=== PATIENT | male | born 1960 | race Caucasian/White ===

== ENCOUNTER 2018-10-23 11:00 | Inpatient (IN) | payer OTHER ==
[2018-10-22 10:36] VITALS: BMI 21.9
[2018-12-06] MEDS ORDERED: LIDOCAINE 1%-EPI 1:100,000 30 ML MDV IJ ONE (08:03)
[2018-12-06] MEDS ORDERED: THROMBIN (BOVINE) 20,000 UNIT VIAL TP ONE ×2 (08:03→11:44)
[2018-12-06] MEDS ORDERED: GENTAMICIN SO4 80 MG/2 ML VIAL ONE (08:03)
[2018-12-06] MEDS ORDERED: BACITRACIN 15 GM TUBE TOPICAL OINTMENT ONE ×2 (08:25→08:28)
[2018-12-06] MEDS ORDERED: PROPOFOL 20 ML ONE (08:45)
[2018-12-06] MEDS ORDERED: SUCCINYLCHOLINE CHLORIDE 200 MG/10 ML SYRINGE ONE (08:45)
[2018-12-06] MEDS ORDERED: MIDAZOLAM HCL 2 MG/2 ML SINGLE DOSE VIAL ONE (08:46)
[2018-12-06] MEDS ORDERED: ceFAZolin SODIUM 1 GM VIAL ONE ×2 (08:46→17:19)
[2018-12-06] MEDS ORDERED: DEXAMETHASONE SOD PHOSPHATE 4 MG/1 ML VIAL ONE (08:46)
[2018-12-06] MEDS ORDERED: ONDANSETRON 4 MG/2 ML VIAL ONE (08:46)
[2018-12-06] MEDS ORDERED: VANCOMYCIN 1,000 MG VIAL (RESTRICTED TO ID ONLY) ONE (09:07)
--- NOTE | 2018-12-06 09:12 | HP ---
History & Physical Update - History History: No Change - Physical Physical: No Change - Assessment Assessment: No Change - Plan Plan: No Change (Full H&P in paper chart)
[2018-12-06] MEDS ORDERED: VANCOMYCIN 1,000 MG VIAL (RESTRICTED TO ID ONLY) IVPB ONE (09:25)
[2018-12-06] MEDS ORDERED: ceFAZolin SODIUM 1 GM VIAL IVPB ONE (09:25)
[2018-12-06] MEDS ORDERED: BUPIVACAINE LIPOSOME/PF (EXPAREL) 266 MG/20 ML VIAL ONE (09:49)
[2018-12-06] MEDS ORDERED: BUPIVACAINE HCL/PF 0.5% (5 MG/ML) 30 ML VIAL IJ ONE ×3 (09:49→12:30)
[2018-12-06] MEDS ORDERED: LIDOCAINE 1%/EPI 1:100000 (50 ML MULTI DOSE VIAL) INF ONE (09:53)
[2018-12-06] MEDS ORDERED: HYDROmorphone HCl 2 MG/ML VIAL ONE (10:07)
[2018-12-06] MEDS ORDERED: BUPIVACAINE LIPOSOME/PF (EXPAREL) 266 MG/20 ML VIAL IJ ONE ×2 (10:13→12:30)
[2018-12-06] MEDS ORDERED: GELATIN, ABSORBABLE 12-7MM EACH SPONGE TP ONE (10:13)
[2018-12-06] MEDS ORDERED: THROMBIN (BOVINE) 5,000 UNIT VIAL TP ONE ×2 (10:13)
[2018-12-06] MEDS ORDERED: EPHEDRINE SULFATE/0.9% NACL/PF 50 MG/10 ML SYRINGE NR ONE (10:53)
[2018-12-06] MEDS ORDERED: NEOSTIGMINE METHYLSULFATE 0.5 MG/1 ML - 10 ML MDV ONE (12:16)
[2018-12-06] MEDS ORDERED: GLYCOPYRROLATE 0.2 MG/1 ML VIAL ONE (12:17)
[2018-12-06] MEDS ORDERED: ONDANSETRON 4 MG/2 ML VIAL IVPUSH PRN ×2 (13:22→13:24)
[2018-12-06] MEDS ORDERED: diphenhydrAMINE HCL 25 MG CAPSULE (FP) PO PRN (13:22)
[2018-12-06] MEDS ORDERED: oxyCODONE HCL 5 MG TABLET PO PRN ×2 (13:22)
[2018-12-06] MEDS ORDERED: LACTATED RINGERS SOLUTION 1,000 ML IV SCH (13:30)
--- NOTE | 2018-12-06 13:31 | OP ---
Operative Note - Note: Operative Date: 12/06/18 Pre-Operative Diagnosis: Cervical spondylosis Operation: C3-T1 posterior fusion and laminectomies Post-Operative Diagnosis: Same as Pre-op Surgeon: Rigoberto Shepherd Tax Advisor: Palmer Stearns Anesthesia: General Estimated Blood Loss (mls): 1,200 Drains & Tubes with Location: Posterior neck Operative Report Dictated: Yes
[2018-12-06 13:50] LABS: HEMATOCRIT 28.3 % (35.4-49); HEMOGLOBIN 9.6 GM/dL (11.7-16.9); MCH 30.3 pg (25.7-33.7); MCHC 33.8 g/dl (32.0-35.9); MEAN CELL VOLUME 89.7 fl (80-96); MEAN PLT VOLUME 8.4 fl (7.5-11.1); PLATELET COUNT 156 K/MM3 (134-434); RBC 3.16 M/mm3 (4.00-5.60); RDW 12.8 % (11.9-15.9); WHITE BLOOD COUNT 7.1 K/mm3 (4.0-10.0)
--- NOTE | 2018-12-06 15:29 | PN ---
Progress Note, Physician Chief Complaint: patient seen and examined in PACU s/p C3-T1 decompression adn fusion - Current Medication List Current Medications: Active Medications Alprazolam (Xanax -) 0.5 mg PO Q6HPO PRN PRN Reason: ANXIETY Bupropion HCl (Wellbutrin Xl -) 300 mg PO DAILY [facility] Diphenhydramine HCl (Benadryl -) 25 mg PO Q6H PRN PRN Reason: FOR ITCHING Docusate Sodium (Colace -) 100 mg PO TID [facility] Ferrous Sulfate (Feosol -) 325 mg PO DAILY [facility] Folic Acid (Folic Acid -) 1 mg PO DAILY [facility] Heparin Sodium (Porcine) (Heparin -) 5,000 unit SQ TID [facility] Lactated Ringer's (Lactated Ringers Solution) 1,000 mls @ 75 mls/hr IV ASDIR [facility] Last Admin: 12/06/18 14:28 Dose: 0 mls Cefazolin Sodium 1 gm/ (Dextrose) 50 mls @ 100 mls/hr IVPB Q8H-IV [facility] Stop: 12/07/18 17:59 Lactated Ringer's (Lactated Ringers Solution) 1,000 ml in 1,000 mls @ 125 mls/ hr IV ASDIR [facility] Morphine Sulfate (Morphine Sulfate) 4 mg IVPUSH Q4H PRN PRN Reason: PAIN LEVEL 7 - 10 Non-Formulary Medication (Desloratadine/Pseudoephedrine [Clarinex-D 12 Hour Tablet]) 1 each PO DAILY [facility] Ondansetron HCl (Zofran Injection) 4 mg IVPUSH Q6H PRN PRN Reason: NAUSEA AND/OR VOMITING Ondansetron HCl (Zofran Injection) 4 mg IVPUSH Q6H PRN PRN Reason: NAUSEA Oxycodone HCl (Roxicodone -) 5 mg PO Q4H PRN PRN Reason: PAIN LEVEL 1-5 Oxycodone HCl (Roxicodone -) 10 mg PO Q4H PRN PRN Reason: PAIN LEVEL 6-10 Pantoprazole Sodium (Protonix -) 40 mg PO DAILY [facility] Ramipril (Altace -) 5 mg PO DAILY [facility] - Objective Vital Signs: Vital Signs Temperature 98.1 F 12/06/18 13:17 Pulse Rate 90 12/06/18 14:15 Respiratory Rate 16 12/06/18 14:15 Blood Pressure 129/80 12/06/18 14:15 O2 Sat by Pulse Oximetry (%) 100 12/06/18 14:15 Constitutional: Yes: Calm Neck: Yes: Other (neck collar with drain bloody drainage) Cardiovascular: Yes: Regular Rate and Rhythm, S1, S2 Respiratory: Yes: CTA Bilaterally Gastrointestinal: Yes: Normal Bowel Sounds, Soft Genitourinary: Yes: Woods Present Extremities: Yes: Other (scd) Neurological: Yes: Alert, Oriented, Other (able to move all extremites) Labs: CBC, BMP 12/06/18 13:25 Problem List - Problems (1) S/P spinal surgery Assessment/Plan: NABIL drain- COMPA on board repeat ct scan ordered iv abx pain contorl Code(s): Z98.890 - OTHER SPECIFIED POSTPROCEDURAL STATES (2) HTN (hypertension) Assessment/Plan: altace cmp ordered Code(s): I10 - ESSENTIAL (PRIMARY) HYPERTENSION
[2018-12-06] MEDS: DOCUSATE SODIUM 100 MG CAPSULE (FP) PO SCH ×2 (16:04→21:16)
[2018-12-06] MEDS: LACTATED RINGERS SOLUTION 1,000 ML/1,000 ML INFUS.BAG IV SCH ×2 (16:04→22:41)
[2018-12-06] MEDS: HEPARIN NA (PORCINE) 5,000 UNITS/ML 1ML VIAL SQ SCH ×2 (16:07→21:16)
[2018-12-06] MEDS ORDERED: DEXTROSE 5%-WATER - 50 ML IVPB ONE (17:19)
[2018-12-06] MEDS: CEFAZOLIN 1 GM in DEXTROSE 5%-WATER - 50 ML IVPB SCH (17:24)
[2018-12-06] MEDS ORDERED: PT OWN MED DRAWER 7, Y5N ONE (17:56)
[2018-12-06] MEDS: morphine SULFATE 4 MG/ML VIAL IVPUSH PRN (20:50)
[2018-12-06] MEDS: ALPRAZolam 0.25 MG TABLET PO PRN (21:16)
[2018-12-07] MEDS: oxyCODONE HCL 5 MG TABLET PO PRN ×4 (00:25→19:42)
[2018-12-07] MEDS ORDERED: DEXTROSE 5%-WATER - 50 ML IVPB ONE ×2 (01:34→09:47)
[2018-12-07] MEDS ORDERED: ceFAZolin SODIUM 1 GM VIAL ONE ×2 (01:34→09:47)
[2018-12-07] MEDS: CEFAZOLIN 1 GM in DEXTROSE 5%-WATER - 50 ML IVPB SCH ×2 (01:41→09:51)
[2018-12-07] MEDS: HEPARIN NA (PORCINE) 5,000 UNITS/ML 1ML VIAL SQ SCH ×3 (05:32→21:21)
[2018-12-07] MEDS: DOCUSATE SODIUM 100 MG CAPSULE (FP) PO SCH ×3 (05:32→21:21)
[2018-12-07] MEDS: morphine SULFATE 4 MG/ML VIAL IVPUSH PRN (06:04)
[2018-12-07 08:22] LABS: HEMATOCRIT 27.7 % (35.4-49); HEMOGLOBIN 9.6 GM/dL (11.7-16.9); MCH 31.3 pg (25.7-33.7); MCHC 34.8 g/dl (32.0-35.9); PLATELET COUNT 171 K/MM3 (134-434); RBC 3.08 M/mm3 (4.00-5.60); RDW 12.8 % (11.9-15.9); WHITE BLOOD COUNT 10.6 K/mm3 (4.0-10.0)
[2018-12-07 08:59] LABS: IRON SERUM 42 ug/dL (50-175); TOTAL IRON BINDING CAPACITY 230 ug/dL (250-450)
--- NOTE | 2018-12-07 08:59 | PN ---
Progress Note, Physician Chief Complaint: POD1 s/p C3-T1 ACDF - Current Medication List Current Medications: Active Medications Alprazolam (Xanax -) 0.5 mg PO Q6HPO PRN PRN Reason: ANXIETY Last Admin: 12/06/18 21:16 Dose: 0.5 mg Bupropion HCl (Wellbutrin Xl -) 300 mg PO DAILY [facility] Diphenhydramine HCl (Benadryl -) 25 mg PO Q6H PRN PRN Reason: FOR ITCHING Docusate Sodium (Colace -) 100 mg PO TID [facility] Last Admin: 12/07/18 05:32 Dose: 100 mg Ferrous Sulfate (Feosol -) 325 mg PO DAILY [facility] Folic Acid (Folic Acid -) 1 mg PO DAILY [facility] Heparin Sodium (Porcine) (Heparin -) 5,000 unit SQ TID [facility] Last Admin: 12/07/18 05:32 Dose: 5,000 unit Cefazolin Sodium 1 gm/ (Dextrose) 50 mls @ 100 mls/hr IVPB Q8H-IV [facility] Stop: 12/07/18 17:59 Last Admin: 12/07/18 01:41 Dose: 100 mls/hr Lactated Ringer's (Lactated Ringers Solution) 1,000 ml in 1,000 mls @ 125 mls/ hr IV ASDIR [facility] Last Admin: 12/06/18 22:41 Dose: 125 mls/hr Morphine Sulfate (Morphine Sulfate) 4 mg IVPUSH Q4H PRN PRN Reason: PAIN LEVEL 7 - 10 Last Admin: 12/07/18 06:04 Dose: 4 mg Non-Formulary Medication (Desloratadine/Pseudoephedrine [Clarinex-D 12 Hour Tablet]) 1 each PO DAILY [facility] Ondansetron HCl (Zofran Injection) 4 mg IVPUSH Q6H PRN PRN Reason: NAUSEA Oxycodone HCl (Roxicodone -) 5 mg PO Q4H PRN PRN Reason: PAIN LEVEL 1-5 Oxycodone HCl (Roxicodone -) 10 mg PO Q4H PRN PRN Reason: PAIN LEVEL 6-10 Last Admin: 12/07/18 00:25 Dose: 10 mg Pantoprazole Sodium (Protonix -) 40 mg PO DAILY [facility] Ramipril (Altace -) 5 mg PO DAILY [facility] - Objective Vital Signs: Vital Signs Temperature 98.6 F 12/07/18 06:00 Pulse Rate 89 12/07/18 06:00 Respiratory Rate 18 12/07/18 06:00 Blood Pressure 130/88 12/07/18 06:00 O2 Sat by Pulse Oximetry (%) 100 12/06/18 21:00 Labs: CBC, BMP 12/07/18 06:50 Assessment/Plan Doing well s/p GA for cervical fusion. Pain well-controlled, no N/V, no anesthetic issues/complications
[2018-12-07 09:01] LABS: BILIRUBIN,TOTAL 0.6 mg/dL (0.2-1); BLOOD UREA NITROGEN 10.9 mg/dL (7-18); CALCIUM 8.6 mg/dL (8.5-10.1); CREATININE 0.6 mg/dL (0.55-1.3); TOT PROT 5.2 g/dl (6.4-8.2)
[2018-12-07 09:13] LABS: BASO % 0.2 % (0-2.0); HEMATOCRIT 28.1 % (35.4-49); HEMOGLOBIN 9.7 GM/dL (11.7-16.9); LYMPH % 10.8 % (8-40); MCH 31.1 pg (25.7-33.7); MCHC 34.5 g/dl (32.0-35.9); MEAN CELL VOLUME 90.4 fl (80-96); MONO % 7.2 % (3.8-10.2); NEUT % 81.8 % (42.8-82.8); PLATELET COUNT 171 K/MM3 (134-434); RBC 3.11 M/mm3 (4.00-5.60); RDW 12.9 % (11.9-15.9); WHITE BLOOD COUNT 10.6 K/mm3 (4.0-10.0)
--- NOTE | 2018-12-07 09:29 | PN ---
Progress Note (short form) - Note Progress Note: Surgery POD#1 C3-T1 posterior fusion and laminectomies patient seen and examined at the bedside. Patient states his pain is controlled with scheduled pain meds. The pain radiating down his right UE has improved but he is still having significant weakness in b/l UE which he was having before his surgery. Patient has been tolerating his diet and denies any CP, SOB, fever, Chills, nausea or vomiting. CBC, BMP 12/07/18 09:00 12/07/18 06:50 Vital Signs Temp 98.6 F 12/07/18 06:00 Pulse 89 12/07/18 06:00 Resp 18 12/07/18 06:00 BP 130/88 12/07/18 06:00 Pulse Ox 100 12/06/18 21:00 Intake & Output 12/06/18 12/06/18 12/07/18 11:59 23:59 11:59 Intake Total 4200 200 Output Total 3735 1740 Balance 465 -1540 Intake: IV 3850 LACTATED RINGERS SOLUTION 750 1,000 ml In 1,000 ml @ 125 mls/hr IV ASDIR JESUS MANUEL Rx#:[id number] IVPB 50 Oral 300 200 Output: Drainage 85 40 Posterior Neck 35 40 Urine 2400 1700 Richard 1100 1700 Estimated Blood Loss 1250 Other: Voiding Method Indwelling Catheter Bowel Movement No PE: A&Ox3, NAD Unlabored resp on RA C-Spine, trachea midline, posterior dressing c/d/i with surrounding tissue intact and no tracking erythema, edema, collection or d/c, Drain at right paravetebral in good position with SS drainage. B/L UE 3/5 weakness on Left UE throughout. Right UE 4/5 throughout. Unable to participate with full exam 2/2 pain blocking. B/L LE compartments soft, supple and non-tender Problem List - Problems (1) S/P spinal surgery Assessment/Plan: POD #1 C3-T1 decompression and fusion doing well with some post op anemia, stable and asymptomatic. -OOB with PT today -D/c richard now -Regular diet -DVT and GI prophylaxis -Continue ABX while NABIL in place -Trend H&H -continue Iron and folate -Continue C-collar 23hrs/day Evaluation and plan discussed with Dr Shepherd Code(s): Z98.890 - OTHER SPECIFIED POSTPROCEDURAL STATES
[2018-12-07] MEDS ORDERED: PT OWN MED DRAWER 7, Y5N ONE (09:46)
[2018-12-07] MEDS: PANTOPRAZOLE 40 MG TABLET (FP) PO SCH (09:51)
[2018-12-07] MEDS: FOLIC ACID 1 MG TABLET (FP) PO SCH (09:51)
[2018-12-07] MEDS: FERROUS SO4 325 MG TABLET (FP) PO SCH (09:51)
[2018-12-07] MEDS: LACTATED RINGERS SOLUTION 1,000 ML/1,000 ML INFUS.BAG IV SCH ×2 (09:51→13:49)
[2018-12-07] MEDS: RAMIPRIL 5 MG CAPSULE (FP) PO SCH (09:51)
[2018-12-07] MEDS: DESLORATADINE PO SCH (09:52)
[2018-12-07] MEDS: [UNRECOGNIZED DRUG - OTHER] PO SCH (09:52)
[2018-12-07] MEDS: PSEUDOEPHEDRINE PO SCH (09:52)
--- NOTE | 2018-12-07 14:13 | PN ---
Progress Note (short form) - Note Progress Note: Plan d/w attending Dr Cronin. Requested Darian be removed. Pt seen, sitting in chair with family bedside. Darian with approx 10ml serosanguinous drainage in reservoir. Take off of suction and removed without issue. Tip intact. New 4x4 and tegaderm placed. Pt tolerated well.
--- NOTE | 2018-12-07 15:18 | PN ---
Progress Note, Physician Chief Complaint: Cervical Spondylosis C3-T1 Decompression History of Present Illness: Previous notes and events reviewed awake and alert NAD NABIL drain removed C-collar complain of pain after NABIL drain removed - Current Medication List Current Medications: Active Medications Alprazolam (Xanax -) 0.5 mg PO Q6HPO PRN PRN Reason: ANXIETY Last Admin: 12/06/18 21:16 Dose: 0.5 mg Bupropion HCl (Wellbutrin Xl -) 300 mg PO DAILY [facility] Last Admin: 12/07/18 09:52 Dose: 300 mg Diphenhydramine HCl (Benadryl -) 25 mg PO Q6H PRN PRN Reason: FOR ITCHING Docusate Sodium (Colace -) 100 mg PO TID [facility] Last Admin: 12/07/18 13:41 Dose: 100 mg Ferrous Sulfate (Feosol -) 325 mg PO DAILY [facility] Last Admin: 12/07/18 09:51 Dose: 325 mg Folic Acid (Folic Acid -) 1 mg PO DAILY [facility] Last Admin: 12/07/18 09:51 Dose: 1 mg Heparin Sodium (Porcine) (Heparin -) 5,000 unit SQ TID [facility] Last Admin: 12/07/18 13:50 Dose: 5,000 unit Cefazolin Sodium 1 gm/ (Dextrose) 50 mls @ 100 mls/hr IVPB Q8H-IV [facility] Stop: 12/07/18 17:59 Last Admin: 12/07/18 09:51 Dose: 100 mls/hr Morphine Sulfate (Morphine Sulfate) 4 mg IVPUSH Q4H PRN PRN Reason: PAIN LEVEL 7 - 10 Last Admin: 12/07/18 06:04 Dose: 4 mg Non-Formulary Medication (Desloratadine/Pseudoephedrine [Clarinex-D 12 Hour Tablet]) 1 each PO DAILY [facility] Last Admin: 12/07/18 09:52 Dose: 1 each Ondansetron HCl (Zofran Injection) 4 mg IVPUSH Q6H PRN PRN Reason: NAUSEA Oxycodone HCl (Roxicodone -) 5 mg PO Q4H PRN PRN Reason: PAIN LEVEL 1-5 Oxycodone HCl (Roxicodone -) 10 mg PO Q4H PRN PRN Reason: PAIN LEVEL 6-10 Last Admin: 12/07/18 10:08 Dose: 10 mg Pantoprazole Sodium (Protonix -) 40 mg PO DAILY [facility] Last Admin: 12/07/18 09:51 Dose: 40 mg Ramipril (Altace -) 5 mg PO DAILY [facility] Last Admin: 12/07/18 09:51 Dose: 5 mg - Objective Vital Signs: Vital Signs Temperature 99.3 F 12/07/18 10:00 Pulse Rate 106 H 12/07/18 10:00 Respiratory Rate 20 12/07/18 10:00 Blood Pressure 130/88 12/07/18 10:00 O2 Sat by Pulse Oximetry (%) 99 12/07/18 09:00 Constitutional: Yes: No Distress, Calm Eyes: Yes: Conjunctiva Clear HENT: Yes: Atraumatic Neck: Yes: Other (c-collar) Cardiovascular: Yes: Regular Rate and Rhythm Respiratory: Yes: Regular, CTA Bilaterally Gastrointestinal: Yes: Normal Bowel Sounds, Soft Musculoskeletal: Yes: Muscle Weakness Extremities: Yes: WNL Edema: No Wound/Incision: Yes: Dressing Dry and Intact Neurological: Yes: Alert, Oriented Psychiatric: Yes: Alert, Oriented Labs: CBC, BMP 12/07/18 09:00 12/07/18 06:50 Problem List - Problems (1) S/P spinal surgery Assessment/Plan: -Neurosurgery on board -C-collar -Incentive Spirometer -POD #1 C#-T1 decompression -pain control -dvt ppx -IV Antibiotics -PT Code(s): Z98.890 - OTHER SPECIFIED POSTPROCEDURAL STATES (2) HTN (hypertension) Assessment/Plan: -Altace Code(s): I10 - ESSENTIAL (PRIMARY) HYPERTENSION Assessment/Plan see problem list dvt ppx
[2018-12-08] MEDS: oxyCODONE HCL 5 MG TABLET PO PRN ×4 (00:20→14:26)
[2018-12-08] MEDS: DOCUSATE SODIUM 100 MG CAPSULE (FP) PO SCH ×3 (05:58→21:05)
[2018-12-08] MEDS: HEPARIN NA (PORCINE) 5,000 UNITS/ML 1ML VIAL SQ SCH ×3 (05:59→21:06)
[2018-12-08] MEDS: RAMIPRIL 5 MG CAPSULE (FP) PO SCH (09:48)
[2018-12-08] MEDS: FERROUS SO4 325 MG TABLET (FP) PO SCH (09:48)
[2018-12-08] MEDS: PANTOPRAZOLE 40 MG TABLET (FP) PO SCH (09:48)
[2018-12-08] MEDS: FOLIC ACID 1 MG TABLET (FP) PO SCH (09:48)
[2018-12-08] MEDS: ALPRAZolam 0.25 MG TABLET PO PRN ×2 (09:49→21:07)
[2018-12-08] MEDS: [UNRECOGNIZED DRUG - OTHER] PO SCH (09:53)
[2018-12-08] MEDS: PSEUDOEPHEDRINE PO SCH (09:53)
[2018-12-08] MEDS: DESLORATADINE PO SCH (09:53)
[2018-12-08] MEDS: morphine SULFATE 4 MG/ML VIAL IVPUSH PRN ×2 (10:49→16:00)
--- NOTE | 2018-12-08 13:55 | PN ---
Progress Note, Physician - Current Medication List Current Medications: Active Medications Alprazolam (Xanax -) 0.5 mg PO Q6HPO PRN PRN Reason: ANXIETY Last Admin: 12/08/18 09:49 Dose: 0.5 mg Bupropion HCl (Wellbutrin Xl -) 300 mg PO DAILY [facility] Last Admin: 12/08/18 10:56 Dose: 300 mg Diphenhydramine HCl (Benadryl -) 25 mg PO Q6H PRN PRN Reason: FOR ITCHING Docusate Sodium (Colace -) 100 mg PO TID [facility] Last Admin: 12/08/18 05:58 Dose: 100 mg Ferrous Sulfate (Feosol -) 325 mg PO DAILY [facility] Last Admin: 12/08/18 09:48 Dose: 325 mg Folic Acid (Folic Acid -) 1 mg PO DAILY [facility] Last Admin: 12/08/18 09:48 Dose: 1 mg Heparin Sodium (Porcine) (Heparin -) 5,000 unit SQ TID [facility] Last Admin: 12/08/18 13:21 Dose: 5,000 unit Morphine Sulfate (Morphine Sulfate) 4 mg IVPUSH Q4H PRN PRN Reason: PAIN LEVEL 7 - 10 Last Admin: 12/08/18 10:49 Dose: 4 mg Non-Formulary Medication (Desloratadine/Pseudoephedrine [Clarinex-D 12 Hour Tablet]) 1 each PO DAILY [facility] Last Admin: 12/08/18 09:53 Dose: 1 each Ondansetron HCl (Zofran Injection) 4 mg IVPUSH Q6H PRN PRN Reason: NAUSEA Oxycodone HCl (Roxicodone -) 5 mg PO Q4H PRN PRN Reason: PAIN LEVEL 1-5 Oxycodone HCl (Roxicodone -) 10 mg PO Q4H PRN PRN Reason: PAIN LEVEL 6-10 Last Admin: 12/08/18 09:49 Dose: 10 mg Pantoprazole Sodium (Protonix -) 40 mg PO DAILY [facility] Last Admin: 12/08/18 09:48 Dose: 40 mg Ramipril (Altace -) 5 mg PO DAILY [facility] Last Admin: 12/08/18 09:48 Dose: 5 mg - Objective Vital Signs: Vital Signs Temperature 98.3 F 12/08/18 10:03 Pulse Rate 92 H 12/08/18 10:03 Respiratory Rate 20 12/08/18 10:03 Blood Pressure 136/68 12/08/18 10:03 O2 Sat by Pulse Oximetry (%) 98 12/08/18 09:00 Cardiovascular: Yes: Regular Rate and Rhythm Respiratory: Yes: Regular, CTA Bilaterally Gastrointestinal: Yes: Normal Bowel Sounds, Soft Labs: CBC, BMP 12/07/18 09:00 12/07/18 06:50 Assessment/Plan - Problems (1) S/P spinal surgery Assessment/Plan: -Neurosurgery on board -C-collar -Incentive Spirometer -POD #2 C#-T1 decompression -pain control -dvt ppx -IV Antibiotics -PT Code(s): Z98.890 - OTHER SPECIFIED POSTPROCEDURAL STATES (2) HTN (hypertension) Assessment/Plan: -Altace Code(s): I10 - ESSENTIAL (PRIMARY) HYPERTENSION
[2018-12-08] MEDS: ACETAMINOPHEN 325 MG TABLET (FP) PO PRN (18:19)
--- NOTE | 2018-12-08 18:23 | PN ---
Progress Note (short form) - Note Progress Note: Episodic Note 12/08/2018@ 6:20pm Called by nurse patient has a fever of 100.1. Chart reviewed. WBC 10.7 today. Tylenol ordered Ordered CBC, procalcitonin and lactic acid, blood cultures, UA w/culture and CXR ID consulted- Dr. Laughlin Fever workup in progress Visit type - Emergency Visit Emergency Visit: No - New Patient This patient is new to me today: Yes Date on this admission: 12/08/18 - Critical Care Critical Care patient: No
[2018-12-08] MEDS ORDERED: ceFAZolin SODIUM 1 GM VIAL ONE (18:36)
[2018-12-08] MEDS ORDERED: DEXTROSE 5%-WATER - 50 ML IVPB ONE (18:36)
[2018-12-08] MEDS: CEFAZOLIN 1 GM in DEXTROSE 5%-WATER - 50 ML IVPB SCH (18:44)
[2018-12-08] MEDS ORDERED: PT OWN MED DRAWER 7, Y5N ONE (18:55)
[2018-12-08 20:21] LABS: HEMOGLOBIN 9.2 GM/dL (11.7-16.9); MCH 30.8 pg (25.7-33.7); MCHC 34.1 g/dl (32.0-35.9); MEAN CELL VOLUME 90.4 fl (80-96); MEAN PLT VOLUME 9.3 fl (7.5-11.1); PLATELET COUNT 145 K/MM3 (134-434); RBC 2.99 M/mm3 (4.00-5.60); RDW 12.7 % (11.9-15.9); WHITE BLOOD COUNT 7.6 K/mm3 (4.0-10.0)
[2018-12-08 21:06] LABS: URINE APPEARANCE CLEAR; URINE BILIRUBIN NEGATIVE (NEGATIVE); URINE COLOR YELLOW; URINE GLUCOSE (UA) NEGATIVE (NEGATIVE); URINE KETONE NEGATIVE (NEGATIVE); URINE LEUK ESTERASE NEGATIVE (NEGATIVE); URINE NITRITE NEGATIVE (NEGATIVE); URINE PROTEIN NEGATIVE (NEGATIVE)
[2018-12-09] MEDS: oxyCODONE HCL 5 MG TABLET PO PRN ×3 (00:51→14:51)
[2018-12-09] MEDS: ACETAMINOPHEN 325 MG TABLET (FP) PO PRN (00:52)
[2018-12-09] MEDS ORDERED: DEXTROSE 5%-WATER - 50 ML IVPB ONE ×2 (01:02→10:34)
[2018-12-09] MEDS ORDERED: ceFAZolin SODIUM 1 GM VIAL ONE ×2 (01:02→10:33)
[2018-12-09] MEDS: CEFAZOLIN 1 GM in DEXTROSE 5%-WATER - 50 ML IVPB SCH ×2 (01:09→10:40)
[2018-12-09] MEDS: HEPARIN NA (PORCINE) 5,000 UNITS/ML 1ML VIAL SQ SCH ×2 (06:29→13:09)
[2018-12-09] MEDS: DOCUSATE SODIUM 100 MG CAPSULE (FP) PO SCH ×2 (06:30→13:09)
[2018-12-09] MEDS: morphine SULFATE 4 MG/ML VIAL IVPUSH PRN (06:35)
--- NOTE | 2018-12-09 08:15 | PN ---
Progress Note (short form) - Note Progress Note: Patient recovering well from surgery with notable improvement in preoperative pain/headaches and is ambulatory without difficulties. He had a low grade temperature yesterday to 100.1, however this has completely resolved. He is using his incentive spirometer and is wearing his collar. Patient is clear for discharge from Neurosurgery standpoint. NABIL Drain was removed uneventfully on Monday. Incision is clean, dry and intact. I discussed postoperative care with the patient who will contact my office for an appointment. All questions answered.
[2018-12-09] MEDS ORDERED: PT OWN MED DRAWER 7, Y5N ONE (10:33)
[2018-12-09] MEDS: FOLIC ACID 1 MG TABLET (FP) PO SCH (10:39)
[2018-12-09] MEDS: PANTOPRAZOLE 40 MG TABLET (FP) PO SCH (10:39)
[2018-12-09] MEDS: FERROUS SO4 325 MG TABLET (FP) PO SCH (10:39)
[2018-12-09] MEDS: RAMIPRIL 5 MG CAPSULE (FP) PO SCH (10:40)
[2018-12-09] MEDS: DESLORATADINE PO SCH (10:40)
[2018-12-09] MEDS: [UNRECOGNIZED DRUG - OTHER] PO SCH (10:40)
[2018-12-09] MEDS: PSEUDOEPHEDRINE PO SCH (10:40)
--- NOTE | 2018-12-09 11:09 | DS ---
Physical Examination Vital Signs: Vital Signs Temperature 98.1 F 12/09/18 07:36 Pulse Rate 82 12/09/18 07:36 Respiratory Rate 16 12/09/18 07:36 Blood Pressure 134/75 12/09/18 07:36 O2 Sat by Pulse Oximetry (%) 98 12/08/18 20:31 Cardiovascular: Yes: Regular Rate and Rhythm Respiratory: Yes: Regular, CTA Bilaterally Gastrointestinal: Yes: Normal Bowel Sounds, Soft. No: Tenderness Edema: No Labs: CBC, BMP 12/08/18 19:15 12/07/18 06:50 Discharge Summary Reason For Visit: CERVICAL SPONDYLOSIS & KYPHOSIS Current Active Problems HTN (hypertension) (Acute) S/P spinal surgery (Acute) Hospital Course: - Problems (1) S/P spinal surgery Assessment/Plan: -Neurosurgery on board -C-collar -Incentive Spirometer -POD #2 C#-T1 decompression -pain control -dvt ppx -IV Antibiotics -PT Code(s): Z98.890 - OTHER SPECIFIED POSTPROCEDURAL STATES (2) HTN (hypertension) Assessment/Plan: -Altace Code(s): I10 - ESSENTIAL (PRIMARY) HYPERTENSION had low grade temp yesterday which has resolved no other complaints ns note appreciated michael dc home and follow up with pcp and NS Condition: Improved - Instructions Diet, Activity, Other Instructions: Post Operative Instructions Physical Activity Resume your normal everyday activity as tolerated. No heavy lifting or exercise until seen by your surgeon. You may walk unlimited amounts and climb stairs. You may resume driving the car when you feel safe and comfortable behind the wheel and you are no longer wearing your brace. Do not operate a vehicle while taking narcotic medication. Brace If you had back surgery, wear TLSO Brace whenever out of bed. May remove to sleep and shower. If you had neck surgery, wear surgical collar 23 hr/day. Remove to shower only. Wound Care Keep your incision clean, dry and covered at all times. Apply an occlusive dressing (Saran wrap or Tegaderm) when showering to avoid getting your incision wet. Do not submerge incision or apply ointments or creams. The terry will be removed in the office in 10-14 days post-op. Diet There are no dietary restrictions. Eat healthy, high-fiber foods. Drink 6-8 glasses of liquid each day. This will assist in keeping your bowels regular. Pain Management You may take Tylenol or acetaminophen. Any pain prescription medication ordered should be taken as prescribed for moderate to severe pain. Do not drive, drink alcohol or operate heavy machinery while taking narcotic pain medications. Do not mix narcotic pain medications with sedatives/sleeping aids. Avoid any ibuprofen (Motrin, Advil, Aleve, Toradol, etc ) for 3 months unless otherwise discussed with your surgeon. Call Dr Solorio for any of the following: Severe pain not relieved by medication Fever of 101 or higher Excessive bleeding or drainage on dressing Inability to urinate Any chest pain or shortness of breath, seek Emergency Care. Call the office to confirm a post-operative appointment for 2-3 weeks post-op Rigoberto Shepherd MD [facility] [address] [place] [address]. [place] [address] Disposition: VNS/HOME HEALTH CARE - Home Medications Comprehensive Discharge Medication List: Ambulatory Orders Bupropion HCl [Wellbutrin Xl] 300 mg PO DAILY 10/22/18 Esomeprazole Magnesium [Nexium 24Hr] 40 mg PO DAILY 10/22/18 Ibuprofen 400 mg PO PRN 10/22/18 Ramipril 5 mg PO DAILY 10/22/18 Docusate Sodium [Colace -] 100 mg PO TID capsule 12/09/18 FENTANYL 100mcg PATCH [DURAGESIC 100mcg PATCH -] 1 each TD Q72H #5 patch.td72 MDD 1 12/09/18 Ferrous Sulfate [Feosol] 325 mg PO DAILY ud 12/09/18 Folic Acid - 1 mg PO DAILY tablet 12/09/18 Oxycodone HCl/Acetaminophen [Percocet 5-325 mg Tablet] 1 tab PO QID #15 tablet MDD 4 12/09/18
[2018-12-09 12:46] LABS: BASO % 0.4 % (0-2.0); EOS % 0.4 % (0-4.5); HEMATOCRIT 27.3 % (35.4-49); HEMOGLOBIN 9.4 GM/dL (11.7-16.9); LYMPH % 11.7 % (8-40); MCH 31.1 pg (25.7-33.7); MCHC 34.3 g/dl (32.0-35.9); MEAN CELL VOLUME 90.7 fl (80-96); MONO % 6.4 % (3.8-10.2); NEUT % 81.1 % (42.8-82.8); PLATELET COUNT 160 K/MM3 (134-434); RBC 3.01 M/mm3 (4.00-5.60); RDW 12.8 % (11.9-15.9)
[2018-12-09 12:54] LABS: BILIRUBIN,TOTAL 0.5 mg/dL (0.2-1); BLOOD UREA NITROGEN 9.1 mg/dL (7-18); CALCIUM 8.7 mg/dL (8.5-10.1); CREATININE 0.6 mg/dL (0.55-1.3); POTASSIUM 3.9 mmol/L (3.5-5.1); TOT PROT 5.9 g/dl (6.4-8.2)
[2018-12-09 14:07] VITALS: BP 124/67; PULSE 100; TEMP 99.1
--- NOTE | 2018-12-11 08:42 | SURG ---
Surgery Bottom Saw Operator Note Bottom Saw Operator: Palmer Stearns PA-C Date of Service: 12/06/18 Diagnosis: Cervical spondylotic myelopathy Procedure: 1. Cranial Tong Application 2. Fluoroscopy 3. Local autograft 4. Posterior Segmental Instrumentation C3-T1 (technically challenging) 5. C3 Laminectomy 6. C4 Laminectomy 7. C5 Laminectomy 8. C6 Laminectomy 9. C7 Laminectomy 10. T1 Laminectomy 11. C3/4 Posterior/Lateral arthrodesis 12. C4/5 Posterior/Lateral arthrodesis 13. C5/6 Posterior/Lateral arthrodesis 14. C6/7 Posterior/Lateral arthrodesis 15. C7/T1 Posterior/Lateral arthrodesis 16. C3 Posterior Osteotomy 17. C4 Posterior Osteotomy 18. C5 Posterior Osteotomy 19. C6 Posterior Osteotomy 20. C7 Posterior Osteotomy 21. T1 Posterior Osteotomy 22. Bilateral Soft tissue Advancement flaps (50 cm2) 23. [employer] I was present for the entirety of the operative procedure. For further detail, please refer to operative report. Visit type - Case Type Case Type: Scheduled - Emergency Emergency Visit: No - New patient This patient is new to me today: Yes Date on this admission: 12/11/18 - Critical Care Critical Care patient: No
== END 2018-12-09 17:36 | disposition home health service (06) | DRG 321 ==
LOC: EDSEX → JSAMEDAYSX 12-06 07:00 → J8W 12-06 15:30
PROVIDERS: ADMIT Family Medicine; ATTEND Family Medicine
PROC: 0RG2071 Fusion of 2 or more Cervical Vertebral Joints with Autologous Tissue Substitute, Posterior Approach, Posterior Column, Open Approach (ICD-10-PCS; 2018-12-06)
PROC: 00NW0ZZ Release Cervical Spinal Cord, Open Approach (ICD-10-PCS; 2018-12-06)
PROC: 0RG40AJ Fusion of Cervicothoracic Vertebral Joint with Interbody Fusion Device, Posterior Approach, Anterior Column, Open Approach (ICD-10-PCS; 2018-12-06)
PROC: 0RG4071 Fusion of Cervicothoracic Vertebral Joint with Autologous Tissue Substitute, Posterior Approach, Posterior Column, Open Approach (ICD-10-PCS; 2018-12-06)
PROC: B01BZZZ Fluoroscopy of Spinal Cord (ICD-10-PCS; 2018-12-06)
PROC: 0JX70ZB Transfer Back Subcutaneous Tissue and Fascia with Skin and Subcutaneous Tissue, Open Approach (ICD-10-PCS; 2018-12-06)
PROC: 2W30XYZ Immobilization of Head using Other Device (ICD-10-PCS; 2018-12-06)
PROC: 0RG20AJ Fusion of 2 or more Cervical Vertebral Joints with Interbody Fusion Device, Posterior Approach, Anterior Column, Open Approach (ICD-10-PCS; principal; 2018-12-06 09:00)
DX: M47.12 Other spondylosis with myelopathy, cervical region (principal); M40.292 Other kyphosis, cervical region; I10 Essential (primary) hypertension
CPT/HCPCS: 36415; 71045-TC-FY; 72125-TC; 76000-TC-FY; 80048; 80053; 81003; 82308; 83540; 83550; 83605; 85025; 85027; 86850; 86900; 86901; 87040; 87086; 94760; 97116-GP; 97162-GP; J1644

== ENCOUNTER 2019-11-19 04:13 | Inpatient (IN) | payer OTHER ==
[2019-11-15 08:21] VITALS: BMI 22.6
[2019-11-19] MEDS ORDERED: LIDOCAINE 1%/EPI 1:100000 (20 ML MULTI DOSE VIAL) ONE (07:10)
[2019-11-19] MEDS ORDERED: VANCOMYCIN 1,000 MG VIAL (RESTRICTED TO ID ONLY) ONE ×2 (07:11→08:29)
[2019-11-19] MEDS ORDERED: THROMBIN (BOVINE) 20,000 UNIT VIAL TP ONE (07:11)
--- NOTE | 2019-11-19 07:48 | HP ---
History & Physical Update - History History: No Change - Physical Physical: No Change - Assessment Assessment: No Change - Plan Plan: No Change (no changes since 11/11/19)
[2019-11-19] MEDS ORDERED: ROCURONIUM BROMIDE 50 MG/5 ML SYRINGE ONE (07:56)
[2019-11-19] MEDS ORDERED: PROPOFOL 20 ML ONE ×2 (07:56)
[2019-11-19] MEDS ORDERED: morphine SULFATE/PF 0.5 MG/ML (2cc Syringe - QUVA) ONE (07:57)
[2019-11-19] MEDS ORDERED: MIDAZOLAM HCL 2 MG/2 ML SINGLE DOSE VIAL ONE (07:57)
[2019-11-19] MEDS ORDERED: DEXAMETHASONE SOD PHOSPHATE 4 MG/1 ML VIAL IVPUSH PRN (08:03)
[2019-11-19] MEDS ORDERED: ONDANSETRON 4 MG/2 ML VIAL IVPUSH PRN ×3 (08:03→11:23)
[2019-11-19] MEDS ORDERED: PROMETHAZINE HCL 25 MG/1 ML VIAL IVPUSH PRN (08:03)
[2019-11-19] MEDS ORDERED: PROMETHAZINE HCL 25 MG/1 ML VIAL IVPB PRN (08:03)
[2019-11-19] MEDS ORDERED: HYDROmorphone *PCA* 10MG/50ML DISP.SYRIN PCA SCH (08:15)
[2019-11-19] MEDS ORDERED: LACTATED RINGERS SOLUTION 1,000 ML IV SCH (08:15)
[2019-11-19] MEDS ORDERED: SODIUM CHLORIDE 0.9% P/F 10 ML VIAL IJ ONE (08:27)
[2019-11-19] MEDS ORDERED: ceFAZolin SODIUM 1 GM VIAL ONE ×2 (08:27→17:49)
[2019-11-19] MEDS ORDERED: ceFAZolin 2 GRAM PREMIX BAG IVPB ONE (08:46)
[2019-11-19] MEDS ORDERED: VANCOMYCIN 1,000 MG VIAL (RESTRICTED TO ID ONLY) IVPB ONE ×2 (08:46→08:57)
[2019-11-19] MEDS ORDERED: DEXAMETHASONE SOD PHOSPHATE 4 MG/1 ML VIAL ONE (08:48)
[2019-11-19] MEDS ORDERED: ONDANSETRON 4 MG/2 ML VIAL ONE (08:48)
[2019-11-19] MEDS ORDERED: GENTAMICIN SO4 80 MG/2 ML VIAL IVPB ONE (08:57)
[2019-11-19] MEDS ORDERED: BACITRACIN 50,000 UNITS VIAL NR ONE ×2 (08:57)
[2019-11-19] MEDS ORDERED: THROMBIN (BOVINE) 5,000 UNIT VIAL TP ONE (08:57)
[2019-11-19] MEDS ORDERED: LIDOCAINE 1%/EPI 1:100000 (20 ML MULTI DOSE VIAL) INF ONE (08:57)
[2019-11-19] MEDS ORDERED: BUPIVACAINE LIPOSOME/PF (EXPAREL) 266 MG/20 ML VIAL ONE (09:48)
[2019-11-19] MEDS ORDERED: ACETAMINOPHEN INJECTION 100 ML IVPB ONE (10:08)
[2019-11-19] MEDS ORDERED: GLYCOPYRROLATE 0.2 MG/1 ML VIAL ONE (10:45)
[2019-11-19] MEDS ORDERED: PHENYLEPHRINE HCL 10 MG/1 ML SINGLE DOSE VIAL ONE (10:45)
[2019-11-19] MEDS ORDERED: NEOSTIGMINE METHYLSULFATE 0.5 MG/1 ML - 10 ML MDV ONE (10:45)
[2019-11-19] MEDS ORDERED: METOPROLOL TARTRATE 5 MG/5 ML VIAL ONE (11:08)
[2019-11-19] MEDS ORDERED: HYDROmorphone *PCA* 10MG/50ML DISP.SYRIN ONE (11:17)
[2019-11-19] MEDS ORDERED: diphenhydrAMINE HCL 25 MG CAPSULE (FP) PO PRN (11:23)
[2019-11-19] MEDS ORDERED: LACTATED RINGERS SOLUTION 1,000 ML/1,000 ML INFUS.BAG IV SCH (11:30)
--- NOTE | 2019-11-19 11:55 | OP ---
Operative Note - Note: Operative Date: 11/19/19 Pre-Operative Diagnosis: spondylosis Operation: L4-L5 Laminectomies with L45 Transdedicular decompression and interbody cage arthrodesis with L45 pedicle screw fusion. Excision of juxtaposition facet cyst Post-Operative Diagnosis: Same as Pre-op Surgeon: Rigoberto Shepherd Architecture Manager: Nancie Valentine Anesthesiologist/BOTTLE FILLER: Redd Landeros Anesthesia: General, Spinal (duramorph spinal), Local Specimens Removed: juxtaposition facet cyst Estimated Blood Loss (mls): 100 Drains & Tubes with Location: Right Paravetebral NABIL drain Drains, Volume Out (mls): 200 (richard) Fluid Volume Replaced (mls): 1,200 Operative Report Dictated: Yes
--- NOTE | 2019-11-19 11:58 | SURG ---
Surgery Trucking Manager Note Trucking Manager: Nancie Valentine PA-C Date of Service: 11/19/19 Diagnosis: spondylosis Procedure: L4-L5 Laminectomies with L45 Transdedicular decompression and interbody cage arthrodesis with L45 pedicle screw fusion. Excision of juxtaposition facet cyst I was present for the entirety of the operative procedure. For further detail, please refer to operative report. Visit type - Case Type Case Type: Scheduled - Emergency Emergency Visit: No - New patient This patient is new to me today: Yes Date on this admission: 11/19/19
[2019-11-19] MEDS: LACTATED RINGERS SOLUTION 1,000 ML/1,000 ML INFUS.BAG IV SCH ×2 (14:00→21:10)
[2019-11-19] MEDS ORDERED: DEXTROSE 5%-WATER - 50 ML IVPB ONE (17:49)
[2019-11-19] MEDS: CEFAZOLIN 1 GM in DEXTROSE 5%-WATER - 50 ML IVPB SCH (17:55)
[2019-11-19] MEDS: DOCUSATE SODIUM 100 MG CAPSULE (FP) PO SCH ×2 (17:55→21:11)
[2019-11-19] MEDS: HEPARIN NA (PORCINE) 5,000 UNITS/ML 1ML VIAL SQ SCH (21:11)
[2019-11-20] MEDS ORDERED: ceFAZolin SODIUM 1 GM VIAL ONE ×3 (00:59→16:26)
[2019-11-20] MEDS ORDERED: DEXTROSE 5%-WATER - 50 ML IVPB ONE ×3 (00:59→16:26)
[2019-11-20] MEDS: CEFAZOLIN 1 GM in DEXTROSE 5%-WATER - 50 ML IVPB SCH ×3 (01:18→16:43)
[2019-11-20] MEDS: LACTATED RINGERS SOLUTION 1,000 ML/1,000 ML INFUS.BAG IV SCH (05:37)
[2019-11-20] MEDS: DOCUSATE SODIUM 100 MG CAPSULE (FP) PO SCH ×3 (05:38→21:18)
[2019-11-20] MEDS: HEPARIN NA (PORCINE) 5,000 UNITS/ML 1ML VIAL SQ SCH ×3 (05:38→21:18)
[2019-11-20] MEDS ORDERED: PCA PUMP NR ONE ×4 (05:46→12:28)
[2019-11-20 06:37] LABS: HEMATOCRIT 31.1 % (35.4-49); HEMOGLOBIN 10.6 GM/dL (11.7-16.9); MCH 30.9 pg (25.7-33.7); MCHC 34.1 g/dl (32.0-35.9); MEAN CELL VOLUME 90.7 fl (80-96); MEAN PLT VOLUME 8.6 fl (7.5-11.1); PLATELET COUNT 131 K/MM3 (134-434); RBC 3.42 M/mm3 (4.00-5.60); RDW 12.9 % (11.9-15.9); WHITE BLOOD COUNT 7.4 K/mm3 (4.0-10.0)
[2019-11-20 07:02] LABS: BLOOD UREA NITROGEN 14.5 mg/dL (7-18); CALCIUM 8.6 mg/dL (8.5-10.1); CREATININE 0.5 mg/dL (0.55-1.3); POTASSIUM 3.4 mmol/L (3.5-5.1)
--- NOTE | 2019-11-20 08:56 | HP ---
Admitting History and Physical - Past Medical History Cardiovascular: Yes: HTN. No: CAD Gastrointestinal: Yes: GERD Endocrine: No: Diabetes Mellitus - Smoking History Smoking history: Former smoker Have you smoked in the past 12 months: Yes Aproximately how many cigarettes per day: 4 If you are a former smoker, when did you quit?: 2019 - Alcohol/Substance Use Hx Alcohol Use: No Home Medications - Allergies Allergies/Adverse Reactions: Allergies Allergy/AdvReac Type Severity Reaction Status Date / Time gabapentin [From Neurontin] Allergy Severe Difficulty Verified 11/15/19 08:22 Breathing UNKNOWN ANTIBIOTIC AdvReac Intermediate NAUSEA, Uncoded 11/15/19 08:22 DIARRHEA - Home Medications Home Medications: Ambulatory Orders Bupropion HCl [Wellbutrin Xl] 300 mg PO DAILY 10/22/18 Esomeprazole Magnesium [Nexium 24Hr] 40 mg PO DAILY 10/22/18 Ramipril 5 mg PO DAILY 10/22/18 Docusate Sodium [Colace -] 100 mg PO TID capsule 12/09/18 FENTANYL 100mcg PATCH [DURAGESIC 100mcg PATCH -] 1 each TD Q72H #5 patch.td72 MDD 1 12/09/18 Oxycodone HCl/Acetaminophen [Percocet 5-325 mg Tablet] 1 tab PO QID #15 tablet MDD 4 12/09/18 Review of Systems - Review of Systems Cardiovascular: denies: Chest Pain Respiratory: reports: No Symptoms Gastrointestinal: reports: No Symptoms Genitourinary: reports: No Symptoms Musculoskeletal: reports: Back Pain Physical Examination Vital Signs: Vital Signs Temperature 98.4 F 11/20/19 06:00 Pulse Rate 69 11/20/19 06:00 Respiratory Rate 16 11/20/19 06:00 Blood Pressure 101/61 11/20/19 06:00 O2 Sat by Pulse Oximetry (%) 98 11/20/19 06:00 Cardiovascular: Yes: Regular Rate and Rhythm Respiratory: Yes: Regular, CTA Bilaterally Gastrointestinal: Yes: Normal Bowel Sounds, Soft. No: Tenderness Musculoskeletal: Yes: Back Pain Edema: No Labs: CBC, BMP 11/20/19 05:22 11/20/19 05:22 Problem List - Problems (1) HTN (hypertension) Assessment/Plan: continue with altace monitor Vital Signs Period Temp Pulse Resp BP Sys/Marte Pulse Ox Last 24 Hr 97.8 F-98.7 F 56-74 9-20 93-146/52-87 98-100 Code(s): I10 - ESSENTIAL (PRIMARY) HYPERTENSION (2) S/P spinal surgery Assessment/Plan: Operative Date: 11/19/19 Pre-Operative Diagnosis: spondylosis Operation: L4-L5 Laminectomies with L45 Transdedicular decompression and interbody cage arthrodesis with L45 pedicle screw fusion. Excision of juxtapos ition facet cyst Post-Operative Diagnosis: Same as Pre-op Surgeon: Rigoberto Shepherd Yield Loss Inspector: Nancie Valentine Further plan per surgery Code(s): Z98.890 - OTHER SPECIFIED POSTPROCEDURAL STATES (3) Anemia Assessment/Plan: chronic check iron studies Code(s): D64.9 - ANEMIA, UNSPECIFIED (4) Hypokalemia Assessment/Plan: replace and monitor Code(s): E87.6 - HYPOKALEMIA
[2019-11-20] MEDS: RAMIPRIL 5 MG CAPSULE (FP) PO SCH (09:05)
[2019-11-20] MEDS: FERROUS SO4 325 MG TABLET (FP) PO SCH (09:05)
[2019-11-20] MEDS: PANTOPRAZOLE 40 MG TABLET PO SCH (09:05)
[2019-11-20] MEDS: FOLIC ACID 1 MG TABLET (FP) PO SCH (09:05)
[2019-11-20] MEDS ORDERED: oxyCODONE HCL 5 MG TABLET PO PRN (09:49)
--- NOTE | 2019-11-20 10:01 | PN ---
Progress Note (short form) - Note Progress Note: SURGERY 59yo M s/p L4/5 PLIF POD 1. Pt seen and examined at bedside. Pt states back pain is controlled. Pt denies fever, chills, n/v. Denies weakness in extremities. Last Vital Signs Temp Pulse Resp BP Pulse Ox 98.4 F 67 18 124/73 100 11/20/19 09:29 11/20/19 09:29 11/20/19 09:29 11/20/19 09:29 11/20/19 09:29 CBC, BMP 11/20/19 05:22 11/20/19 05:22 PE; Gen: A&O X3 Resp: breathing comfortably Back: incision dressing clean, drain in place with serosanguinous drainage. Ext: no weakness or numbness. Problem List - Problems (1) S/P spinal surgery Assessment/Plan: Plan -will dc nutrition professor and start PO pain meds -OOB/ambulate with PT -D/c richard -regular diet -dvt ppx Pt discussed with Dr. Shepherd who agrees with plan Code(s): Z98.890 - OTHER SPECIFIED POSTPROCEDURAL STATES
[2019-11-20] MEDS ORDERED: POTASSIUM CHLORIDE TABS 20 MEQ TABLET.ER (FP) PO ONE (10:42)
[2019-11-20] MEDS: oxyCODONE HCL 5 MG TABLET PO PRN ×3 (12:19→22:11)
--- NOTE | 2019-11-20 13:09 | PN ---
Progress Note (short form) - Note Progress Note: Post op day#1.S/P L4-L5 decompression with fusion and cage placement under Spinal with Duramorph and GA uneventful.Patient also had Exparil injection by Dr Shepherd.Patient sitting comfortable in bed and has pain score of 2-3/10 at rest.Dilaudid CAGE LOADER is DC today and patient on PO pain medication now.No any anesthesia related problem.Patient DC from the anesthesia care.
--- NOTE | 2019-11-20 17:37 | PATH ---
Surgical Pathology Report Patient Name: SARAHY JARQUIN [facility]. Rec. #: [id number] /Age/Gender: 1960 (Age: 59) / M Account: [id number] Location: [facility]/ADOL Taken: 11/19/2019 Received: 11/19/2019 Reported: 11/20/2019 Physicians: Rigoberto Solorio M.D. Specimen(s) Received JUXTA FACET DISC Clinical History Lumbar spondylosis Final Diagnosis JUXTA FACET "DISC", RESECTION: FIBROCONNECTIVE AND FIBROSYNOVIAL TISSUE CONSISTENT WITH SYNOVIAL CYST. Electronically Signed Miriam Russo M.D. Gross Description Received in formalin labeled "juxtafacet disc," is a 1.0 x 0.8 x 0.3 cm galdamez, irregular portion of soft tissue. The specimen is trisected and entirely submitted in one cassette. /11/19/2019 saudi/11/19/2019
[2019-11-21] MEDS ORDERED: ceFAZolin SODIUM 1 GM VIAL ONE ×2 (00:53→09:06)
[2019-11-21] MEDS ORDERED: DEXTROSE 5%-WATER - 50 ML IVPB ONE ×2 (00:53→09:07)
[2019-11-21] MEDS: CEFAZOLIN 1 GM in DEXTROSE 5%-WATER - 50 ML IVPB SCH ×2 (00:56→09:12)
[2019-11-21] MEDS: oxyCODONE HCL 5 MG TABLET PO PRN ×3 (05:58→14:13)
[2019-11-21] MEDS: HEPARIN NA (PORCINE) 5,000 UNITS/ML 1ML VIAL SQ SCH ×2 (05:58→14:14)
[2019-11-21] MEDS: DOCUSATE SODIUM 100 MG CAPSULE (FP) PO SCH ×2 (05:58→14:13)
[2019-11-21 07:37] LABS: BASO % 0.5 % (0-2.0); EOS % 1.2 % (0-4.5); HEMOGLOBIN 10.8 GM/dL (11.7-16.9); LYMPH % 18.7 % (8-40); MCH 30.7 pg (25.7-33.7); MCHC 33.7 g/dl (32.0-35.9); MEAN PLT VOLUME 8.4 fl (7.5-11.1); MONO % 10.6 % (3.8-10.2); PLATELET COUNT 135 K/MM3 (134-434); RBC 3.51 M/mm3 (4.00-5.60); RDW 12.9 % (11.9-15.9)
[2019-11-21 08:23] LABS: BLOOD UREA NITROGEN 10.2 mg/dL (7-18); CALCIUM 8.9 mg/dL (8.5-10.1); CREATININE 0.5 mg/dL (0.55-1.3); POTASSIUM 3.6 mmol/L (3.5-5.1)
[2019-11-21] MEDS ORDERED: POTASSIUM CHLORIDE TABS 20 MEQ TABLET.ER (FP) PO ONE (08:45)
--- NOTE | 2019-11-21 08:46 | PN ---
Progress Note, Physician - Current Medication List Current Medications: Active Medications Bupropion HCl (Wellbutrin Xl -) 300 mg PO DAILY [facility] Last Admin: 11/20/19 09:05 Dose: 300 mg Documented by: Dexamethasone Sodium Phosphate (Decadron Injection -) 4 mg IVPUSH ONCE PRN PRN Reason: NAUSEA AND/OR VOMITING Diphenhydramine HCl (Benadryl Injection -) 12.5 mg IVPUSH ONCE PRN PRN Reason: FOR ITCHING Diphenhydramine HCl (Benadryl -) 25 mg PO Q6H PRN PRN Reason: FOR ITCHING Docusate Sodium (Colace -) 100 mg PO TID [facility] Last Admin: 11/21/19 05:58 Dose: 100 mg Documented by: Ferrous Sulfate (Feosol -) 325 mg PO DAILY [facility] Last Admin: 11/20/19 09:05 Dose: 325 mg Documented by: Folic Acid (Folic Acid -) 1 mg PO DAILY [facility] Last Admin: 11/20/19 09:05 Dose: 1 mg Documented by: Heparin Sodium (Porcine) (Heparin -) 5,000 unit SQ TID [facility] Last Admin: 11/21/19 05:58 Dose: 5,000 unit Documented by: Cefazolin Sodium 1 gm/ (Dextrose) 50 mls @ 100 mls/hr IVPB Q8H [facility] Last Admin: 11/21/19 00:56 Dose: 100 mls/hr Documented by: Oxycodone HCl (Roxicodone -) 5 mg PO Q4H PRN PRN Reason: PAIN LEVEL 1-5 Oxycodone HCl (Roxicodone -) 10 mg PO Q4H PRN PRN Reason: PAIN LEVEL 6-10 Last Admin: 11/21/19 05:58 Dose: 10 mg Documented by: Pantoprazole Sodium (Protonix -) 40 mg PO DAILY [facility] Last Admin: 11/20/19 09:05 Dose: 40 mg Documented by: Potassium Chloride (K-Dur -) 20 meq PO ONCE ONE Stop: 11/21/19 08:46 Promethazine HCl (Phenergan Injection -) 12.5 mg IVPB Q6H PRN PRN Reason: NAUSEA AND/OR VOMITING Ramipril (Altace -) 5 mg PO DAILY [facility] Last Admin: 11/20/19 09:05 Dose: 5 mg Documented by: - Objective Vital Signs: Vital Signs Temperature 97.6 F 11/21/19 06:00 Pulse Rate 78 11/21/19 06:00 Respiratory Rate 18 11/21/19 06:00 Blood Pressure 119/73 11/21/19 06:00 O2 Sat by Pulse Oximetry (%) 98 11/21/19 06:00 Cardiovascular: Yes: Regular Rate and Rhythm Respiratory: Yes: Regular, CTA Bilaterally Gastrointestinal: Yes: Normal Bowel Sounds, Soft Wound/Incision: Yes: Other (drain in place) Labs: CBC, BMP 11/21/19 07:06 11/21/19 07:06 Problem List - Problems (1) HTN (hypertension) Assessment/Plan: continue with altace monitor Vital Signs Period Temp Pulse Resp BP Sys/Marte Pulse Ox Last 24 Hr 97.6 F-100.1 F 67-89 -20 114-140/65-79 95-100 Code(s): I10 - ESSENTIAL (PRIMARY) HYPERTENSION (2) S/P spinal surgery Assessment/Plan: Operative Date: 11/19/19 Pre-Operative Diagnosis: spondylosis Operation: L4-L5 Laminectomies with L45 Transdedicular decompression and interbody cage arthrodesis with L45 pedicle screw fusion. Excision of juxtaposition facet cyst Post-Operative Diagnosis: Same as Pre-op Surgeon: Rigoberto Shepherd Incident Response Engineer: Nancie Valentine Further plan per surgery Code(s): Z98.890 - OTHER SPECIFIED POSTPROCEDURAL STATES (3) Anemia Assessment/Plan: chronic check iron studies Code(s): D64.9 - ANEMIA, UNSPECIFIED (4) Hypokalemia Assessment/Plan: replace and monitor Code(s): E87.6 - HYPOKALEMIA
--- NOTE | 2019-11-21 08:47 | PN ---
Progress Note (short form) - Note Progress Note: SURGERY 59yo M s/p L4/5 PLIF POD 2. Pt seen and examined at bedside. Pt states back pain is controlled. Pt denies fever, chills, n/v. Denies weakness in extremities. Pt urinating and ambulating well. Pt is anxious to go home. Vital Signs Temp 97.6 F 11/21/19 06:00 Pulse 78 11/21/19 06:00 Resp 18 11/21/19 06:00 BP 119/73 11/21/19 06:00 Pulse Ox 98 11/21/19 06:00 Intake & Output 11/20/19 11/20/19 11/21/19 11:59 23:59 11:59 Intake Total 970 2275 50 Output Total 560 2510 840 Balance 410 -737 -561 Intake: IV 800 625 LACTATED RINGERS SOLUTION 800 625 1,000 ml In 1,000 ml @ 125 mls/hr IV ASDIR JESUS MANUEL Rx#:[id number] IVPB 50 50 50 Oral 120 1600 Output: Drainage 60 90 40 Right Lower Back 60 90 40 Urine 500 2420 800 Woods 500 2020 Void 400 800 Other: Voiding Method Indwelling Catheter Urinal Bowel Movement No No CBC, BMP 11/21/19 07:06 11/21/19 07:06 PE; Gen: A&O X3 Resp: breathing comfortably Back: incision dressing clean, drain in place with serosanguinous drainage. Ext: no weakness or numbness. Problem List - Problems (1) S/P spinal surgery Assessment/Plan: Plan -will plan to D/c drain later today, with plans to discharge home today. -OOB/ambulate with PT -regular diet -dvt ppx Pt discussed with Dr. Shepherd who agrees with plan Code(s): Z98.890 - OTHER SPECIFIED POSTPROCEDURAL STATES
[2019-11-21] MEDS: FOLIC ACID 1 MG TABLET (FP) PO SCH (09:13)
[2019-11-21] MEDS: PANTOPRAZOLE 40 MG TABLET PO SCH (09:13)
[2019-11-21] MEDS: FERROUS SO4 325 MG TABLET (FP) PO SCH (09:13)
[2019-11-21] MEDS: RAMIPRIL 5 MG CAPSULE (FP) PO SCH (09:14)
[2019-11-21 14:06] VITALS: BP 117/65; PULSE 84; TEMP 98.6
--- NOTE | 2019-11-21 16:42 | DS ---
Physical Examination Vital Signs: Vital Signs Temperature 98.6 F 11/21/19 13:00 Pulse Rate 84 11/21/19 13:00 Respiratory Rate 20 11/21/19 13:00 Blood Pressure 117/65 11/21/19 13:00 O2 Sat by Pulse Oximetry (%) 97 11/21/19 09:25 Labs: CBC, BMP 11/21/19 07:06 11/21/19 07:06 Discharge Summary Reason For Visit: LUMBAR SPONDYLOSIS Current Active Problems Anemia (Acute) Hypokalemia (Acute) Condition: Good - Instructions Diet, Activity, Other Instructions: Post Operative Instructions Physical Activity Resume your normal everyday activity as tolerated. No heavy lifting or exercise until seen by your surgeon. You may walk unlimited amounts and climb stairs. You may resume driving the car when you feel safe and comfortable behind the wheel and you are no longer wearing your brace. Do not operate a vehicle while taking narcotic medication. Brace If you had back surgery, wear TLSO Brace whenever out of bed. May remove to sleep and shower. Wound Care Keep your incision clean, dry and covered at all times. Apply an occlusive dressing (Saran wrap or Tegaderm) when showering to avoid getting your incision wet. Do not submerge incision or apply ointments or creams. Diet There are no dietary restrictions. Eat healthy, high-fiber foods. Drink 6-8 glas ses of liquid each day. This will assist in keeping your bowels regular. Pain Management You may take Tylenol or acetaminophen. Any pain prescription medication ordered should be taken as prescribed for moderate to severe pain. Avoid any ibuprofen (Motrin, Advil, Aleve, Toradol, etc) for 3 months unless otherwise discussed with your surgeon. Call Dr Solorio for any of the following: Severe pain not relieved by medication Fever of 101 or higher Excessive bleeding or drainage on dressing Inability to urinate Any chest pain or shortness of breath, seek Emergency Care. Call the office to confirm a post-operative appointment for 2-3 weeks post-op Rigoberto Shepherd MD [facility] [address] [place] [address] Disposition: HOME - Home Medications Comprehensive Discharge Medication List: Ambulatory Orders Bupropion HCl [Wellbutrin Xl] 300 mg PO DAILY 10/22/18 Esomeprazole Magnesium [Nexium 24Hr] 40 mg PO DAILY 10/22/18 Ramipril 5 mg PO DAILY 10/22/18 Docusate Sodium [Colace -] 100 mg PO TID capsule 12/09/18 FENTANYL 100mcg PATCH [DURAGESIC 100mcg PATCH -] 1 each TD Q72H #5 patch.td72 MDD 1 12/09/18 Oxycodone HCl/Acetaminophen [Percocet 5-325 mg Tablet] 1 tab PO QID #15 tablet MDD 4 12/09/18 Ferrous Sulfate [Feosol] 325 mg PO DAILY ud 11/21/19 Folic Acid - 1 mg PO DAILY tablet 11/21/19
== END 2019-11-21 17:30 | disposition home or self-care (01) | DRG 304 ==
LOC: J2C 04:13 → J4S 14:48
PROVIDERS: ADMIT Family Medicine; ATTEND Family Medicine
PROC: 0SG0071 Fusion of Lumbar Vertebral Joint with Autologous Tissue Substitute, Posterior Approach, Posterior Column, Open Approach (ICD-10-PCS; 2019-11-19)
PROC: 0ST20ZZ Resection of Lumbar Vertebral Disc, Open Approach (ICD-10-PCS; 2019-11-19)
PROC: B01BZZZ Fluoroscopy of Spinal Cord (ICD-10-PCS; 2019-11-19)
PROC: 0JX70ZZ Transfer Back Subcutaneous Tissue and Fascia, Open Approach (ICD-10-PCS; 2019-11-19)
PROC: 00BY0ZZ Excision of Lumbar Spinal Cord, Open Approach (ICD-10-PCS; 2019-11-19)
PROC: 4A11X4G Monitoring of Peripheral Nervous Electrical Activity, Intraoperative, External Approach (ICD-10-PCS; 2019-11-19)
PROC: 0SG00AJ Fusion of Lumbar Vertebral Joint with Interbody Fusion Device, Posterior Approach, Anterior Column, Open Approach (ICD-10-PCS; principal; 2019-11-19 08:00)
DX: M48.061 Spinal stenosis, lumbar region without neurogenic claudication (principal); M47.896 Other spondylosis, lumbar region; M48.9 Spondylopathy, unspecified; I10 Essential (primary) hypertension; K21.9 Gastro-esophageal reflux disease without esophagitis; D64.9 Anemia, unspecified; E87.6 Hypokalemia
CPT/HCPCS: 36415; 72131-TC; 76000-TC-FY; 80048; 82607; 82728; 83540; 83550; 85025; 85027; 86850; 86900; 86901; 88304-TC; 94010; 94760; 97116-GP; 97161-GP; J0131; J1644

== ENCOUNTER 2020-02-18 04:16 | Inpatient (IN) | payer OTHER ==
[2020-02-17 17:20] VITALS: BMI 22.9
[2020-02-18] MEDS ORDERED: SUCCINYLCHOLINE CHLORIDE 200 MG/10 ML SYRINGE ONE (07:26)
[2020-02-18] MEDS ORDERED: ONDANSETRON 4 MG/2 ML VIAL ONE (07:26)
[2020-02-18] MEDS ORDERED: DEXAMETHASONE SOD PHOSPHATE 4 MG/1 ML VIAL ONE (07:26)
[2020-02-18] MEDS ORDERED: LIDOCAINE HCL/PF 2% SDV 5ML VIAL ONE (07:26)
[2020-02-18] MEDS ORDERED: PROPOFOL 20 ML ONE ×2 (07:26→10:04)
[2020-02-18] MEDS ORDERED: ROCURONIUM BROMIDE 50 MG/5 ML SYRINGE ONE ×3 (07:26→11:33)
[2020-02-18] MEDS ORDERED: fentaNYL CITRATE 250 MCG/5 ML VIAL ONE (07:26)
[2020-02-18] MEDS ORDERED: MIDAZOLAM HCL 2 MG/2 ML SINGLE DOSE VIAL ONE (07:26)
[2020-02-18] MEDS ORDERED: GENTAMICIN SO4 80 MG/2 ML VIAL ONE (07:33)
[2020-02-18] MEDS ORDERED: THROMBIN (BOVINE) 5,000 UNIT VIAL TP ONE ×4 (07:34→10:57)
[2020-02-18] MEDS ORDERED: VANCOMYCIN 1,000 MG VIAL (RESTRICTED TO ID ONLY) IVPB ONE (08:00)
[2020-02-18] MEDS ORDERED: morphine SULFATE/PF 0.5 MG/ML (2cc Syringe - QUVA) ONE (08:05)
[2020-02-18] MEDS ORDERED: ceFAZolin SODIUM 1 GM VIAL IVPB ONE ×4 (08:20→14:10)
[2020-02-18] MEDS ORDERED: ceFAZolin SODIUM 1 GM VIAL ONE ×4 (08:35→21:37)
[2020-02-18] MEDS ORDERED: LIDOCAINE 1%/EPI 1:100000 (20 ML MULTI DOSE VIAL) IJ ONE ×3 (08:53→10:45)
[2020-02-18] MEDS ORDERED: ONDANSETRON 4 MG/2 ML VIAL IVPUSH PRN ×2 (09:02→09:03)
[2020-02-18] MEDS ORDERED: morphine SULFATE/PF 0.5 MG/ML (2cc Syringe - QUVA) IT ONE (09:03)
[2020-02-18] MEDS ORDERED: oxyCODONE HCL 5 MG TABLET PO PRN ×2 (09:03)
[2020-02-18] MEDS ORDERED: NALOXONE HCL 0.4 MG/ML VIAL IVPUSH PRN (09:03)
[2020-02-18] MEDS ORDERED: LACTATED RINGERS SOLUTION 1,000 ML IV SCH (09:15)
[2020-02-18] MEDS ORDERED: BACITRACIN 15 GM TUBE TOPICAL OINTMENT ONE (09:42)
[2020-02-18] MEDS ORDERED: HYDROGEN PEROXIDE 473 ML PO ONE (09:45)
[2020-02-18] MEDS ORDERED: BACITRACIN 50,000 UNITS VIAL TP ONE (09:46)
[2020-02-18] MEDS ORDERED: GENTAMICIN 80MG PREMIX BAG IVPB ONE (09:48)
[2020-02-18] MEDS ORDERED: BUPIVACAINE HCL/PF 0.5% (5 MG/ML) 30 ML VIAL IJ ONE ×2 (11:28→13:13)
[2020-02-18] MEDS ORDERED: BUPIVACAINE LIPOSOME/PF (EXPAREL) 266 MG/20 ML VIAL NR ONE ×2 (11:29→13:12)
[2020-02-18] MEDS ORDERED: EPHEDRINE SULFATE/0.9% NACL/PF 50 MG/10 ML SYRINGE NR ONE (13:18)
[2020-02-18] MEDS ORDERED: NEOSTIGMINE METHYLSULFATE 0.5 MG/1 ML - 10 ML MDV ONE (14:25)
[2020-02-18] MEDS ORDERED: GLYCOPYRROLATE 0.2 MG/1 ML VIAL ONE (14:26)
[2020-02-18] MEDS ORDERED: HYDROmorphone *PCA* 10MG/50ML DISP.SYRIN PCA SCH (14:30)
[2020-02-18] MEDS ORDERED: diphenhydrAMINE HCL 25 MG CAPSULE (FP) PO PRN (14:50)
[2020-02-18] MEDS ORDERED: ALPRAZolam 0.25 MG TABLET PO PRN (14:52)
[2020-02-18] MEDS: ACETAMINOPHEN 325 MG TABLET (FP) PO SCH ×2 (15:15→21:45)
[2020-02-18] MEDS: LACTATED RINGERS SOLUTION 1,000 ML/1,000 ML INFUS.BAG IV SCH (18:18)
[2020-02-18] MEDS: MORPHINE SULFATE 2 MG/ML VIAL IVPUSH PRN (21:43)
[2020-02-18] MEDS: DOCUSATE SODIUM 100 MG CAPSULE (FP) PO SCH (21:44)
[2020-02-18] MEDS: CEFAZOLIN 1 GM in DEXTROSE 5%-WATER - 50 ML IVPB SCH (21:54)
[2020-02-18] MEDS ORDERED: CEFAZOLIN 1 GM/D5W 1 GM/50 ML BAG IVPB SCH (22:00)
[2020-02-19] MEDS: MORPHINE SULFATE 2 MG/ML VIAL IVPUSH PRN ×3 (01:21→13:21)
[2020-02-19] MEDS: ACETAMINOPHEN 325 MG TABLET (FP) PO SCH ×5 (03:30→21:25)
[2020-02-19] MEDS ORDERED: ceFAZolin SODIUM 1 GM VIAL ONE ×3 (05:48→21:21)
[2020-02-19] MEDS ORDERED: DEXTROSE 5%-WATER - 50 ML IVPB ONE ×3 (05:48→21:21)
[2020-02-19] MEDS: CEFAZOLIN 1 GM in DEXTROSE 5%-WATER - 50 ML IVPB SCH ×4 (06:15→21:22)
[2020-02-19 07:24] LABS: HEMOGLOBIN 11.3 GM/dL (11.7-16.9); MCH 30.2 pg (25.7-33.7); MCHC 34.2 g/dl (32.0-35.9); MEAN CELL VOLUME 88.1 fl (80-96); MEAN PLT VOLUME 9.2 fl (7.5-11.1); PLATELET COUNT 151 K/MM3 (134-434); RBC 3.74 M/mm3 (4.00-5.60); RDW 13.8 % (11.9-15.9); WHITE BLOOD COUNT 9.5 K/mm3 (4.0-10.0)
[2020-02-19 07:39] LABS: POTASSIUM 3.7 mmol/L (3.5-5.1)
[2020-02-19 07:41] LABS: CALCIUM 8.9 mg/dL (8.5-10.1)
[2020-02-19 07:42] LABS: BLOOD UREA NITROGEN 12.7 mg/dL (7-18)
[2020-02-19 07:45] LABS: CREATININE 0.5 mg/dL (0.55-1.3)
[2020-02-19] MEDS ORDERED: FERROUS SO4 325 MG TABLET (FP) PO SCH (08:00)
[2020-02-19] MEDS ORDERED: RAMIPRIL 5 MG CAPSULE PO SCH (10:00)
[2020-02-19] MEDS ORDERED: HEPARIN NA (PORCINE) 5,000 UNITS/ML 1ML VIAL SQ SCH (10:00)
[2020-02-19] MEDS ORDERED: PANTOPRAZOLE 40 MG TABLET PO SCH (10:00)
[2020-02-19] MEDS ORDERED: FOLIC ACID 1 MG TABLET (FP) PO SCH (10:00)
[2020-02-19] MEDS ORDERED: oxyCODONE HCL 10 MG SUSTAINED ACTING TABLET PO SCH (10:00)
[2020-02-19] MEDS: DOCUSATE SODIUM 100 MG CAPSULE (FP) PO SCH ×3 (10:25→21:25)
[2020-02-19] MEDS: LACTATED RINGERS SOLUTION 1,000 ML/1,000 ML INFUS.BAG IV SCH ×2 (11:24→15:24)
[2020-02-19] MEDS ORDERED: NALOXONE HCL 0.4 MG/ML VIAL IVPUSH PRN (15:27)
[2020-02-19] MEDS ORDERED: diphenhydrAMINE HCL 25 MG CAPSULE (FP) PO PRN (15:27)
[2020-02-19] MEDS ORDERED: MORPHINE SULFATE 2 MG/ML VIAL IVPUSH PRN (15:27)
[2020-02-19] MEDS ORDERED: ALPRAZolam 0.25 MG TABLET PO PRN (15:27)
[2020-02-19] MEDS ORDERED: LACTATED RINGERS SOLUTION 1,000 ML/1,000 ML INFUS.BAG IV SCH (15:27)
[2020-02-19] MEDS ORDERED: ONDANSETRON 4 MG/2 ML VIAL IVPUSH PRN (15:27)
[2020-02-19] MEDS ORDERED: oxyCODONE HCL 5 MG TABLET PO PRN ×2 (15:27)
[2020-02-19] MEDS: HEPARIN NA (PORCINE) 5,000 UNITS/ML 1ML VIAL SQ SCH (21:25)
[2020-02-19] MEDS: oxyCODONE HCL 10 MG SUSTAINED ACTING TABLET PO SCH (21:38)
[2020-02-19] MEDS ORDERED: CEFAZOLIN 1 GM in DEXTROSE 5%-WATER - 50 ML IVPB SCH (22:00)
[2020-02-20] MEDS ORDERED: ceFAZolin SODIUM 1 GM VIAL ONE ×2 (05:44→14:38)
[2020-02-20] MEDS ORDERED: DEXTROSE 5%-WATER - 50 ML IVPB ONE ×2 (05:44→14:38)
[2020-02-20] MEDS: CEFAZOLIN 1 GM in DEXTROSE 5%-WATER - 50 ML IVPB SCH ×2 (05:50→14:40)
[2020-02-20] MEDS: ACETAMINOPHEN 325 MG TABLET (FP) PO SCH ×3 (06:02→17:39)
[2020-02-20] MEDS: HEPARIN NA (PORCINE) 5,000 UNITS/ML 1ML VIAL SQ SCH ×2 (06:03→14:41)
[2020-02-20] MEDS ORDERED: FERROUS SO4 325 MG TABLET (FP) PO SCH (08:00)
[2020-02-20] MEDS ORDERED: RAMIPRIL 5 MG CAPSULE PO SCH (10:00)
[2020-02-20] MEDS ORDERED: PT OWN MED DRAWER 7, Y5N ONE (10:31)
[2020-02-20] MEDS: DOCUSATE SODIUM 100 MG CAPSULE (FP) PO SCH ×2 (10:34→10:43)
[2020-02-20] MEDS: FOLIC ACID 1 MG TABLET (FP) PO SCH ×2 (10:34→10:44)
[2020-02-20] MEDS: oxyCODONE HCL 10 MG SUSTAINED ACTING TABLET PO SCH (10:35)
[2020-02-20] MEDS: PANTOPRAZOLE 40 MG TABLET PO SCH ×2 (10:36→10:45)
[2020-02-20 14:50] VITALS: BP 139/81; PULSE 90; TEMP 99
[2020-02-20 16:00] LABS: BASO % 0.2 % (0-2.0); EOS % 0.6 % (0-4.5); HEMATOCRIT 34.9 % (35.4-49); HEMOGLOBIN 11.8 GM/dL (11.7-16.9); LYMPH % 11.7 % (8-40); MCH 29.9 pg (25.7-33.7); MCHC 33.9 g/dl (32.0-35.9); MEAN CELL VOLUME 88.2 fl (80-96); MEAN PLT VOLUME 9.5 fl (7.5-11.1); MONO % 7.9 % (3.8-10.2); NEUT % 79.6 % (42.8-82.8); PLATELET COUNT 152 K/MM3 (134-434); RBC 3.96 M/mm3 (4.00-5.60); RDW 13.7 % (11.9-15.9); WHITE BLOOD COUNT 8.3 K/mm3 (4.0-10.0)
[2020-02-20 16:16] LABS: POTASSIUM 3.3 mmol/L (3.5-5.1)
[2020-02-20 16:18] LABS: CALCIUM 8.5 mg/dL (8.5-10.1)
[2020-02-20 16:19] LABS: ALBUMIN 3.4 g/dl (3.4-5.0); BLOOD UREA NITROGEN 9.1 mg/dL (7-18)
[2020-02-20 16:22] LABS: CREATININE 0.4 mg/dL (0.55-1.3)
[2020-02-20 16:23] LABS: BILIRUBIN,TOTAL 0.4 mg/dL (0.2-1)
[2020-02-20 16:24] LABS: TOT PROT 6.4 g/dl (6.4-8.2)
== END 2020-02-20 18:51 | disposition home or self-care (01) | DRG 303 ==
LOC: J2C 04:16 → J4W 17:57 → J8W 02-19 13:47
PROVIDERS: ADMIT Neurological Surgery; ATTEND Family Medicine
PROC: 0RB50ZZ Excision of Cervicothoracic Vertebral Disc, Open Approach (ICD-10-PCS; 2020-02-18)
PROC: 00NW0ZZ Release Cervical Spinal Cord, Open Approach (ICD-10-PCS; 2020-02-18)
PROC: B01BZZZ Fluoroscopy of Spinal Cord (ICD-10-PCS; 2020-02-18)
PROC: 4A1004G Monitoring of Central Nervous Electrical Activity, Intraoperative, Open Approach (ICD-10-PCS; 2020-02-18)
PROC: 0RP104Z Removal of Internal Fixation Device from Cervical Vertebral Joint, Open Approach (ICD-10-PCS; 2020-02-18)
PROC: 0RP404Z Removal of Internal Fixation Device from Cervicothoracic Vertebral Joint, Open Approach (ICD-10-PCS; 2020-02-18)
PROC: 0RG2071 Fusion of 2 or more Cervical Vertebral Joints with Autologous Tissue Substitute, Posterior Approach, Posterior Column, Open Approach (ICD-10-PCS; 2020-02-18)
PROC: 0RG4071 Fusion of Cervicothoracic Vertebral Joint with Autologous Tissue Substitute, Posterior Approach, Posterior Column, Open Approach (ICD-10-PCS; 2020-02-18)
PROC: 0RGA071 Fusion of Thoracolumbar Vertebral Joint with Autologous Tissue Substitute, Posterior Approach, Posterior Column, Open Approach (ICD-10-PCS; 2020-02-18)
PROC: 0PS404Z Reposition Thoracic Vertebra with Internal Fixation Device, Open Approach (ICD-10-PCS; 2020-02-18)
PROC: 0RG40A0 Fusion of Cervicothoracic Vertebral Joint with Interbody Fusion Device, Anterior Approach, Anterior Column, Open Approach (ICD-10-PCS; 2020-02-18)
PROC: 0RB50ZZ Excision of Cervicothoracic Vertebral Disc, Open Approach (ICD-10-PCS; 2020-02-18)
PROC: 0RG4070 Fusion of Cervicothoracic Vertebral Joint with Autologous Tissue Substitute, Anterior Approach, Anterior Column, Open Approach (ICD-10-PCS; principal; 2020-02-18 08:00)
DX: M40.203 Unspecified kyphosis, cervicothoracic region (principal); M47.13 Other spondylosis with myelopathy, cervicothoracic region; M47.12 Other spondylosis with myelopathy, cervical region; I10 Essential (primary) hypertension; D64.9 Anemia, unspecified; K21.9 Gastro-esophageal reflux disease without esophagitis
CPT/HCPCS: 36415; 71045-TC-FY; 72125-TC; 76000-TC-FY; 80048; 80053; 85025; 85027; 86850; 86900; 86901; 86922; 93925-TC; 94010; 94760; 97116-GP; 97161-GP; J1644

== ENCOUNTER 2022-02-22 04:03 | Inpatient (IN) | payer OTHER ==
[2022-02-18 10:25] VITALS: BMI 23.2
[~2022-02-22 04:03] MED LIST: BUPIVACAINE HCL/PF 0.5% (5 MG/ML) 30 ML VIAL IJ ONE; BUPIVACAINE LIPOSOME/PF (EXPAREL) 266 MG/20 ML VIAL NR ONE; GENTAMICIN SO4 80 MG/2 ML VIAL IVPB ONE; HYDROGEN PEROXIDE 473 ML PO ONE; THROMBIN (BOVINE) 20,000 UNIT VIAL TP ONE; VANCOMYCIN 1 GM in NS (PRE-DOCKED) 1,000 MG/250 ML IVPB ONE; ceFAZolin SODIUM 1 GM VIAL IVPB ONE
[2022-02-22] MEDS ORDERED: PROPOFOL 20 ML ONE (07:22)
[2022-02-22] MEDS ORDERED: LIDOCAINE HCL/PF 2% SDV 5ML VIAL ONE (07:22)
[2022-02-22] MEDS ORDERED: ONDANSETRON 4 MG/2 ML VIAL ONE (07:22)
[2022-02-22] MEDS ORDERED: DEXAMETHASONE SOD PHOSPHATE 4 MG/1 ML VIAL ONE (07:22)
[2022-02-22] MEDS ORDERED: SUCCINYLCHOLINE CHLORIDE 200 MG/10 ML SYRINGE ONE (07:23)
[2022-02-22] MEDS ORDERED: ROCURONIUM BROMIDE 50 MG/5 ML SYRINGE ONE (07:23)
[2022-02-22] MEDS ORDERED: MIDAZOLAM HCL 2 MG/2 ML SINGLE DOSE VIAL ONE (07:23)
[2022-02-22] MEDS ORDERED: VANCOMYCIN 1 GM in NS (PRE-DOCKED) 1,000 MG/250 ML IVPB ONE ×5 (08:00→11:19)
[2022-02-22] MEDS ORDERED: ceFAZolin SODIUM 1 GM VIAL IVPB ONE (08:25)
[2022-02-22] MEDS ORDERED: THROMBIN (BOVINE) 20,000 UNIT VIAL TP ONE ×2 (08:30→09:30)
[2022-02-22] MEDS ORDERED: GENTAMICIN SO4 80 MG/2 ML VIAL IVPB ONE ×2 (08:35→10:25)
[2022-02-22] MEDS ORDERED: ceFAZolin SODIUM 1 GM VIAL ONE (08:39)
[2022-02-22] MEDS ORDERED: TRANEXAMIC ACID 1000 MG/10 ML VIAL ONE (08:39)
[2022-02-22] MEDS ORDERED: VANCOMYCIN 1,000 MG VIAL (RESTRICTED TO ID ONLY) ONE (08:39)
[2022-02-22] MEDS ORDERED: HYDROGEN PEROXIDE 473 ML PO ONE ×2 (10:25→10:30)
[2022-02-22] MEDS ORDERED: DESFLURANE GAS 240 ML BOTTLE IH ONE (11:04)
[2022-02-22] MEDS ORDERED: ACETAMINOPHEN INJECTION 100 ML IVPB ONE (11:08)
[2022-02-22] MEDS ORDERED: GLYCOPYRROLATE 0.2 MG/1 ML VIAL ONE (11:13)
[2022-02-22] MEDS ORDERED: NEOSTIGMINE METHYLSULFATE 0.5 MG/ML - 10 ML MDV ONE (11:13)
[2022-02-22] MEDS ORDERED: BUPIVACAINE LIPOSOME/PF (EXPAREL) 266 MG/20 ML VIAL NR ONE (11:18)
[2022-02-22] MEDS ORDERED: BUPIVACAINE HCL/PF 0.5% (5 MG/ML) 30 ML VIAL IJ ONE (11:18)
[2022-02-22] MEDS ORDERED: ONDANSETRON 4 MG/2 ML VIAL IVPUSH PRN ×2 (12:24→14:33)
[2022-02-22] MEDS ORDERED: diphenhydrAMINE HCL 25 MG CAPSULE (FP) PO PRN ×2 (12:24→14:33)
[2022-02-22] MEDS ORDERED: PATIENT'S OWN MEDICATION (NON-FORMULARY) (Clonazepam [Klonopin] 1 MG Tablet) PO PRN (12:29)
[2022-02-22] MEDS ORDERED: FENTANYL PATCH WASTE MC PRN ×2 (12:29→14:33)
[2022-02-22] MEDS ORDERED: ALPRAZolam 1 MG TABLET PO PRN (12:29)
[2022-02-22] MEDS ORDERED: LACTATED RINGERS SOLUTION 1,000 ML/1,000 ML INFUS.BAG IV SCH (12:30)
[2022-02-22] MEDS ORDERED: DOCUSATE SODIUM 100 MG CAPSULE (FP) PO SCH (14:00)
[2022-02-22] MEDS ORDERED: HYDROmorphone *PCA* 10MG/50ML DISP.SYRIN PCA SCH ×2 (14:00→14:33)
[2022-02-22] MEDS ORDERED: PATIENT'S OWN MEDICATION (NON-FORMULARY) (Clonazepam [Klonopin] 1 MG) PO PRN (14:33)
[2022-02-22] MEDS: LACTATED RINGERS SOLUTION 1,000 ML/1,000 ML INFUS.BAG IV SCH (15:30)
[2022-02-22] MEDS ORDERED: FENTANYL PATCH WASTE TD PRN (16:17)
[2022-02-22] MEDS ORDERED: CEFAZOLIN 1 GM/D5W 1 GM/50 ML BAG IVPB SCH (16:30)
[2022-02-22] MEDS: CEFAZOLIN 1 GM in DEXTROSE 5%-WATER - 50 ML IVPB SCH (16:51)
[2022-02-22] MEDS: ACETAMINOPHEN 1000 MG/100 ML BAG IVPB SCH (17:39)
[2022-02-22] MEDS ORDERED: ACETAMINOPHEN 1000 MG/100 ML BAG IVPB SCH (18:00)
[2022-02-22] MEDS: DOCUSATE SODIUM 100 MG CAPSULE (FP) PO SCH (21:52)
[2022-02-22] MEDS: HEPARIN NA (PORCINE) 5,000 UNITS/ML 1ML VIAL SQ SCH (21:52)
[2022-02-22] MEDS ORDERED: HEPARIN NA (PORCINE) 5,000 UNITS/ML 1ML VIAL SQ SCH (22:00)
[2022-02-22] MEDS: ALPRAZolam 1 MG TABLET PO PRN (23:08)
[2022-02-23] MEDS: ACETAMINOPHEN 1000 MG/100 ML BAG IVPB SCH ×3 (00:35→12:42)
[2022-02-23] MEDS: CEFAZOLIN 1 GM in DEXTROSE 5%-WATER - 50 ML IVPB SCH ×2 (00:36→09:18)
[2022-02-23] MEDS: LACTATED RINGERS SOLUTION 1,000 ML/1,000 ML INFUS.BAG IV SCH (00:39)
[2022-02-23 03:35] VITALS: RESP 18
[2022-02-23] MEDS: HEPARIN NA (PORCINE) 5,000 UNITS/ML 1ML VIAL SQ SCH ×3 (05:56→21:37)
[2022-02-23] MEDS: DOCUSATE SODIUM 100 MG CAPSULE (FP) PO SCH (05:57)
[2022-02-23] MEDS: FERROUS SO4 325 MG TABLET (FP) PO SCH (07:58)
[2022-02-23 08:24] LABS: HEMATOCRIT 35.5 % (35.4-49); HEMOGLOBIN 12.2 GM/dL (11.7-16.9); MCH 30.9 pg (25.7-33.7); MCHC 34.3 g/dl (32.0-35.9); MEAN CELL VOLUME 90.1 fl (80-96); MEAN PLT VOLUME 9.8 fl (7.5-11.1); PLATELET COUNT 153 10^3/uL (134-434); RBC 3.94 M/mm3 (4.00-5.60); RDW 12.9 % (11.9-15.9)
[2022-02-23 09:11] LABS: BLOOD UREA NITROGEN 10.3 mg/dL (7-18)
[2022-02-23 09:14] LABS: CREATININE 0.7 mg/dL (0.55-1.3)
[2022-02-23] MEDS: RAMIPRIL 5 MG CAPSULE PO SCH (09:19)
[2022-02-23] MEDS: POLYETHYLENE GLYCOL (HEALTHYLAX) 3350 17 GM PACKET PO SCH (09:19)
[2022-02-23] MEDS: FOLIC ACID 1 MG TABLET (FP) PO SCH (09:20)
[2022-02-23] MEDS ORDERED: PATIENT'S OWN MEDICATION (NON-FORMULARY) (Bupropion Hcl [Wellbutrin Xl] 300 MG Tab.Er.24h) PO SCH (10:00)
[2022-02-23] MEDS ORDERED: FERROUS SO4 325 MG TABLET (FP) PO SCH (10:00)
[2022-02-23] MEDS ORDERED: RAMIPRIL 5 MG CAPSULE PO SCH (10:00)
[2022-02-23] MEDS ORDERED: fentaNYL 100mcg/hr PATCH.TD72 TD SCH ×3 (10:00→14:00)
[2022-02-23] MEDS ORDERED: FOLIC ACID 1 MG TABLET (FP) PO SCH (10:00)
[2022-02-23] MEDS ORDERED: oxyCODONE HCL 5 MG TABLET PO PRN ×3 (13:42→16:46)
[2022-02-23] MEDS: ACETAMINOPHEN 500 MG TABLET (FP) PO SCH (18:00)
[2022-02-23] MEDS: oxyCODONE HCL 5 MG TABLET PO PRN (21:37)
[2022-02-23] MEDS: ALPRAZolam 1 MG TABLET PO PRN (21:38)
[2022-02-23] MEDS ORDERED: DOCUSATE SODIUM 100 MG CAPSULE (FP) PO SCH (22:00)
[2022-02-24] MEDS: ACETAMINOPHEN 500 MG TABLET (FP) PO SCH ×3 (00:33→12:55)
[2022-02-24] MEDS: oxyCODONE HCL 5 MG TABLET PO PRN (03:40)
[2022-02-24] MEDS: HEPARIN NA (PORCINE) 5,000 UNITS/ML 1ML VIAL SQ SCH (06:33)
[2022-02-24 09:31] VITALS: BP 105/73; PULSE 109; TEMP 98.8
[2022-02-24] MEDS: POLYETHYLENE GLYCOL (HEALTHYLAX) 3350 17 GM PACKET PO SCH (09:32)
[2022-02-24] MEDS: FOLIC ACID 1 MG TABLET (FP) PO SCH (09:32)
[2022-02-24] MEDS: FERROUS SO4 325 MG TABLET (FP) PO SCH (09:32)
[2022-02-24] MEDS: RAMIPRIL 5 MG CAPSULE PO SCH (09:32)
== END 2022-02-24 14:05 | disposition home or self-care (01) | DRG 304 ==
LOC: J2C 04:03 → J4W 16:22
PROVIDERS: ADMIT Neurological Surgery; ATTEND Nurse Practitioner Acute Care
PROC: 0SG1071 Fusion of 2 or more Lumbar Vertebral Joints with Autologous Tissue Substitute, Posterior Approach, Posterior Column, Open Approach (ICD-10-PCS; 2022-02-22)
PROC: 0ST20ZZ Resection of Lumbar Vertebral Disc, Open Approach (ICD-10-PCS; 2022-02-22)
PROC: 0SG30AJ Fusion of Lumbosacral Joint with Interbody Fusion Device, Posterior Approach, Anterior Column, Open Approach (ICD-10-PCS; 2022-02-22)
PROC: 0SG0071 Fusion of Lumbar Vertebral Joint with Autologous Tissue Substitute, Posterior Approach, Posterior Column, Open Approach (ICD-10-PCS; 2022-02-22)
PROC: 0ST40ZZ Resection of Lumbosacral Disc, Open Approach (ICD-10-PCS; 2022-02-22)
PROC: 4A11X4G Monitoring of Peripheral Nervous Electrical Activity, Intraoperative, External Approach (ICD-10-PCS; 2022-02-22)
PROC: 0SG10AJ Fusion of 2 or more Lumbar Vertebral Joints with Interbody Fusion Device, Posterior Approach, Anterior Column, Open Approach (ICD-10-PCS; principal; 2022-02-22 08:00)
DX: M51.36 Other intervertebral disc degeneration, lumbar region (principal); M48.061 Spinal stenosis, lumbar region without neurogenic claudication; M51.37 Other intervertebral disc degeneration, lumbosacral region; M47.816 Spondylosis without myelopathy or radiculopathy, lumbar region; I10 Essential (primary) hypertension
CPT/HCPCS: 36415; 72131-TC; 76000-TC-FY; 80048; 85027; 86850; 86900; 86901; 94010; 94760; 97116-GP; 97162-GP; C1713; C1889; J1644